=== PATIENT | female | born 1965 | race Caucasian/White ===

== ENCOUNTER 2017-02-28 10:12 | Inpatient (IN) | payer BC ==
[~2017-02-28] VITALS: Ht 154.9 cm; Wt 106.9 kg
[2017-03-06] MEDS ORDERED: TYLENOL 8 HR PO (11:18)
[2017-03-06] MEDS ORDERED: ASPIRIN 81M81 MG/TA2 PO (11:19)
[2017-03-07] VITALS (11 sets, daily range): BP systolic 108–152; BP diastolic 44–89; PULSE 65–94; TEMP 97.9–98.5
[2017-03-07] MEDS ORDERED: GLUCOTROL XL5 MG/TAB PO (05:23)
[2017-03-07] MEDS ORDERED: NORCO 325 MG-51 TAB PO (05:23)
[2017-03-07] MEDS ORDERED: ZESTRIL 10MG10 MG PO (05:24)
[2017-03-07] MEDS ORDERED: MOBIC15 MG PO (05:24)
[2017-03-07] MEDS ORDERED: MEVACOR10 MG PO (05:24)
[2017-03-07] MEDS ORDERED: GLUCOPHAGE500 MG/TAB PO (05:25)
[2017-03-08 01:03] VITALS: BP 145/65; PULSE 83; TEMP 97.9
[2017-03-08 04:02] VITALS: BP 130/73; PULSE 87; TEMP 98.1
[2017-03-08 07:13] LABS: BASO % 0.1 % (0.0-2.0); GRAN # 12.7 (1.4-6.5); LYMPH % 6.8 % (20.0-51.0); MEAN CELL VOLUME 84 fl (80.0-100.0); MEAN CORPUSCULAR HGB CONC 31 g/dl (33.0-37.0); MEAN PLATELET VOLUME 9.5 fl (7.4-10.4); MONO % 6.7 % (1.7-9.3); PLATELET COUNT 428 K/mm3 (130-400); REDCELL DISTRIBUTION WIDTH-CV 13.9 % (11.5-14.5)
[2017-03-08 07:21] LABS: HEMATOCRIT 32.8 % (37.0-47.0); HEMOGLOBIN 10.2 g/dl (12.5-16.0); MEAN CORPUSCULAR HEMOGLOBIN 26 pg (27.0-31.0)
[2017-03-08 07:35] LABS: CALCIUM 9.1 mg/dL (8.4-10.2); CREATININE, serum 0.82 mg/dL (0.52-1.25); POTASSIUM 3.8 mmol/L (3.4-5.0)
[2017-03-08 08:07] VITALS: BP 139/68; PULSE 74; TEMP 98
[2017-03-08 11:57] VITALS: BP 152/70; PULSE 77; TEMP 97.7
[2017-03-08 16:00] VITALS: BP 149/54; PULSE 78; TEMP 98.2
[2017-03-08 21:10] VITALS: BP 153/67; PULSE 91; TEMP 98.6
[2017-03-09] VITALS (7 sets, daily range): BP systolic 137–160; BP diastolic 62–87; PULSE 86–117; TEMP 97.7–99.2
[2017-03-09 10:57] LABS: MEAN CELL VOLUME 83 fl (80.0-100.0); MEAN CORPUSCULAR HGB CONC 31 g/dl (33.0-37.0); MEAN PLATELET VOLUME 9.6 fl (7.4-10.4); PLATELET COUNT 450 K/mm3 (130-400); RED BLOOD COUNT 4.25 M/mm3 (4.10-5.30)
[2017-03-09 11:00] LABS: HEMATOCRIT 35.3 % (37.0-47.0); MEAN CORPUSCULAR HEMOGLOBIN 26 pg (27.0-31.0)
[2017-03-09 11:06] LABS: CALCIUM 9.6 mg/dL (8.4-10.2); CREATININE, serum 0.83 mg/dL (0.52-1.25); POTASSIUM 4.3 mmol/L (3.4-5.0)
[2017-03-10 00:41] VITALS: BP 154/82; PULSE 86; TEMP 99
[2017-03-10 04:00] VITALS: BP 151/65; PULSE 92; TEMP 98.6
[2017-03-10 07:49] VITALS: BP 159/78; PULSE 111; TEMP 98.7
[2017-03-10 11:47] VITALS: BP 154/72; PULSE 83; TEMP 98.2
== END 2017-03-10 16:50 | disposition home or self-care (01) | DRG 657 ==
LOC: INPTSU 03-07 05:19 → SURG 03-07 07:30 → INPTSU 03-07 08:51 → JCC 03-07 11:10
PROVIDERS: Urology
PROC: 0TT00ZZ Resection of Right Kidney, Open Approach (ICD-10-PCS; principal; 2017-03-07 07:30)
DX: C64.1 Malignant neoplasm of right kidney, except renal pelvis (principal); Z68.41 Body mass index [BMI] 40.0-44.9, adult; Z23 Encounter for immunization; E11.9 Type 2 diabetes mellitus without complications; I10 Essential (primary) hypertension; Z87.891 Personal history of nicotine dependence; E66.01 Morbid (severe) obesity due to excess calories
CPT/HCPCS: A4314; J0330; J0690; J1100; J1170; J1200; J1650; J1815; J1885; J2250; J2405; J2704; J2710; J2765; J2795; J3010; J7030